=== PATIENT | female | born 1955 | race Caucasian/White ===

== ENCOUNTER 2021-03-17 19:37 | Observation (INO) ==
[2021-03-17 20:25] LABS: Hematocrit 36.3 % (35.3-44.9); Hemoglobin 11.8 g/dL (11.5-15.4); Immature Granulocytes % 5.8 % (0-4); Mean Corpuscular HGB Conc 32.5 g/dL (31.6-35.5); Mean Corpuscular Hemoglobin 26.6 pg (28.0-33.3); Mean Corpuscular Volume 81.9 fL (83.0-100.0); Mean Platelet Volume 10.8 fL (9.4-12.4); Red Blood Count 4.43 M/mcL (3.82-4.97); Red Cell Distribution Width 15.2 % (11.5-14.5)
[2021-03-17 20:26] LABS: Lymphocytes # 0.6 K/mcL (0.6-4.6); Nucleated Red Blood Cells 1.5 /100 WBC (0)
[2021-03-17 20:28] LABS: Platelet Count 51 K/mcL (140-400)
[2021-03-17 20:33] LABS: Basophils # 0.1 K/mcL (0.0-0.2); Eosinophils # 0.2 K/mcL (0.0-0.6); Monocytes # 0.5 K/mcL (0.0-1.3)
[2021-03-17 20:34] LABS: Neutrophils # 6.6 K/mcL (1.6-8.9); Platelet Estimate Decreased (Normal)
[2021-03-17 20:43] LABS: Alanine Aminotransferase 24 Units/L (7-52); Albumin 2.7 g/dL (3.5-5.7); Albumin/Globulin Ratio 0.8 (1.1-2.2); Alkaline Phosphatase 358 Units/L (34-104); Aspartate Amino Transferase 40 Units/L (13-39); BUN/Creatinine Ratio 31 (6-26); Bilirubin,Total 4.9 mg/dL (0.3-1.0); Blood Urea Nitrogen 22 mg/dL (8-23); Calcium 13.3 mg/dL (8.6-10.3); Carbon Dioxide 28 mEq/L (23-29); Chloride 99 mEq/L (98-107); Globulin 3.3 g/dL (2.4-3.5); Glucose 101 mg/dL (70-105); Osmolality,Calculated 281 (280-300); Potassium 2.9 mEq/L (3.5-5.1); Sodium 134 mEq/L (136-145); eGFR For African Americans > 60 (> 60); eGFR For Non-African Americans > 60 (> 60)
[2021-03-17] MEDS ORDERED: *HR* LORazepam Oral Conc 2 MG/ML SL ONE (23:33)
[2021-03-18] MEDS ORDERED: Ondansetron ODT 4 MG TAB.RAPDIS SL PRN (00:53)
[2021-03-18] MEDS: Morphine Sulfate Oral CONC 10 MG/0.5 ML ORAL.SYG SL PRN ×4 (04:20→13:57)
[2021-03-18] MEDS: *HR* LORazepam Oral Conc 2 MG/ML SL PRN ×3 (06:44→20:34)
[2021-03-18] MEDS ORDERED: Morphine Sulfate Oral CONC 10 MG/0.5 ML ORAL.SYG SL PRN (16:17)
[2021-03-18 20:28] VITALS: BP 114/76; PULSE 115; RESP 40; TEMP 98.1; O2SAT 86
== END 2021-03-18 23:00 | disposition hospice, inpatient (51) ==
LOC: INPGRE 19:37 → EMEROOGRE 19:37 → INPGRE 03-18 00:50
PROVIDERS: ADMIT Family Medicine; ATTEND Family Medicine

== ENCOUNTER 2021-03-18 20:36 | Inpatient (IN) ==
[2021-03-18] MEDS ORDERED: Ondansetron 4 MG/2 ML VIAL IVP PRN (21:07)
[2021-03-18] MEDS ORDERED: Morphine Sulfate 2 MG/ML SYRINGE IVP PRN (21:07)
[2021-03-19] MEDS: Morphine Sulfate Oral CONC 10 MG/0.5 ML ORAL.SYG PO SCH ×3 (00:13→08:05)
[2021-03-19] MEDS: Atropine 1% Opth Drops 100 DROP/5 ML BOTTLE SL PRN ×3 (00:15→08:05)
[2021-03-19] MEDS: *HR* LORazepam 2 MG/ML VIAL IVP PRN ×2 (00:57→04:53)
[2021-03-19 07:36] VITALS: BP 56/48; PULSE 125; RESP 22; TEMP 97.7; O2SAT 78
[2021-03-19] MEDS ORDERED: *HR* LORazepam Oral Conc 2 MG/ML PO SCH (21:11)
== END 2021-03-19 19:30 | disposition expired | DRG 951 ==
LOC: INPGRE 20:59
PROVIDERS: ADMIT Family Medicine; ATTEND Family Medicine